=== PATIENT | female | born 1995 | race Caucasian/White ===

== ENCOUNTER 2021-03-15 17:36 | Emergency (ER) | payer OTHER, SELFPAY ==
[2021-03-15 17:55] VITALS: BP 133/75; PULSE 70; RESP 16; TEMP 36.7; O2SAT 100
--- NOTE | 2021-03-15 19:14 | ED.URI ---
HPI - URI/Sore Throat General Chief Complaint: Upper Respiratory Infection Stated Complaint: Congestion, Ear pain, Possible sinus infection Time Seen by Provider: 03/15/21 19:15 Source: patient Mode of arrival: ambulatory Limitations: no limitations History of Present Illness HPI Narrative: 25 year old female who presents to express care with complaints of sinus pressure, congestion and sinus drainage since . Patient states that she has taken antihistamines but continues to have facial pressure and forehead headache. Patient states that her pain is 5/10 describes pain as aching and pressure.Patient denies any known fevers chills or sweats, no complaints of sore throat or any ear pain. MD elicited complaint: rhinorrhea, nasal congestion, sinus pain and other (headache) Onset (ago): day(s) (4) Consistency: progressively worsening Severity: moderate Pain scale (0-10): 5 Description of mucous: clear Treatments prior to arrival: other (antihistamine) Related Data Allergies Allergy/AdvReac Type Severity Reaction Status Date / Time Sulfa (Sulfonamide Allergy Swelling Verified 03/15/21 18:12 Antibiotics) of the Eye Review of Systems Review of Systems: Narrative: CONSTITUTIONAL: Denies fever, chills, or sweats. EYES: Denies visual changes, redness, or discharge. ENT: Positive rhinorrhea,, congestion,no sore throat, feel fullness in ears CARDIOVASCULAR: Denies chest pain, palpitations, or edema. RESPIRATORY: Denies cough or dyspnea. GASTROINTESTINAL: Denies abdominal pain, nausea, vomiting, or diarrhea. GENITOURINARY: Denies dysuria or hematuria. SKIN: Denies rash or itching. MUSCULOSKELETAL: Denies back pain, joint pain, or myalgia. NEUROLOGIC: Positive frontal headache, no numbness, or weakness. PSYCHIATRIC: Denies anxiety or depression. All systems reviewed & are unremarkable except as noted in HPI and below PMFSH Past Medical History Medical History (Updated 03/20/21 @ 18:34 by Kailyn Jain NP) No significant medical problems Surgical History Surgical History (Updated 03/20/21 @ 18:35 by Kailyn Jain NP) [place] teeth extracted Family History Family History (Updated 03/20/21 @ 18:37 by Kailyn Jain NP) Mother Diabetes mellitus Grandparent Bladder cancer Diabetes mellitus Father Cerebrovascular accident Social History Social History (Updated 03/20/21 @ 18:33 by Kailyn Jain NP) Smoking status: Current some day smoker Alcohol intake: current Alcohol use details: social Substance use: never Living arrangements: with family Gender identity (if verbalized by the patient): Female Comments At time of signature, agree with nursing past medical, surgical, social and family history. There is no relevant family history pertinent to the presenting complaint Exam Narrative: Exam Narrative: GENERAL: Well-appearing, well-nourished, and in no acute distress. HEAD: Normocephalic, atraumatic. EYES: PERRLA and EOMI. ENT: Nares red with turbinates swollen and red, sinus pressure to face and frontal headache, with clear rhinorrhea no epistaxis. Mucous membranes moist.TM's normal with dull light reflex, throat pink with no lesions or exudates, no tonsil enlargement post nasal drainage noted. NECK: Supple.no lymphadenopathy CHEST: Clear to auscultation. No respiratory distress.SAO2 100% on room air HEART: Regular rate and rhythm. No murmur heard. Normal peripheral pulses. ABDOMEN: Soft, nontender, nondistended, normal active bowel sounds. EXTREMITIES: Normal range of motion. No edema. SKIN: Warm, dry, no rash. NEURO: No focal deficits. Alert and oriented x3. Course Vital Signs Vital signs: Vital Signs Temperature 36.7 C 03/15/21 17:55 Pulse Rate 70 03/15/21 17:55 Respiratory Rate 16 03/15/21 17:55 Blood Pressure 133/75 03/15/21 17:55 Pulse Oximetry 100 03/15/21 17:55 Temperature 36.7 C 03/15/21 17:55 Pulse Rate 70 03/15/21 17:55 Respiratory R
== END 2021-03-15 19:31 | disposition home or self-care (01) ==
PROVIDERS: Emergency Provider Registered Nurse; PCP Family Medicine
DX: J32.9 Chronic sinusitis, unspecified (principal); F17.200 Nicotine dependence, unspecified, uncomplicated
CPT/HCPCS: 99213; G0463

== ENCOUNTER 2021-09-29 13:57 | Outpatient (CLI) | payer OTHER, SELFPAY ==
[2021-09-29 14:16] LABS: Hematocrit 42.8 % (35.0-49.0); Hemoglobin 14.2 g/dL (12.0-15.0); Mean Corpuscular HGB Conc 33.2 g/dL (32.0-36.0); Mean Corpuscular Hemoglobin 30.5 pg (27.0-31.0); Mean Platelet Volume 10.6 fl (9.2-11.8); Platelet Count Result 317 K/mm3 (150-420); Red Blood Count 4.65 M/mm3 (4.20-5.40); Red Cell Distribution Width 12.2 % (11.6-14.4); White Blood Count 6.8 K/mm3 (4.8-10.8)
[2021-09-29 14:24] LABS: Hemoglobin A1C 5.2 % (<5.7)
[2021-09-29 14:55] LABS: Alanine Aminotransferase 19 U/L (14-59); Albumin Level 4.5 g/dL (3.4-5.0); Alkaline Phosphatase 55 U/L (46-116); Anion Gap 10 mmol/L (8-16); Aspartate Amino Transferase 13 U/L (15-37); Bilirubin,Total 0.4 mg/dL (0.00-1.00); Blood Urea Nitrogen 14 mg/dL (7-18); Calcium 9.4 mg/dL (8.5-10.1); Carbon Dioxide 27 mmol/L (21-32); Chloride 102 mmol/L (98-108); Estimated Glomerular Filt Rate > 60; Glucose 91 mg/dL (70-99); Osmolality Calculated 288 mOsm/kg (285-295); Potassium 4.1 mmol/L (3.5-5.1); Sodium 139 mmol/L (136-145); Thyroid Stimulating Hormone 1.76 uIU/mL (0.36-3.74); Total Protein 7.8 g/dL (6.4-8.2)
[2021-10-03 08:27] LABS: FSH 8.8 mIU/mL (***); LH 7.8 mIU/mL (***); Progesterone 2.5 ng/mL (***); Prolactin 7.6 ng/mL (***)
== END 2021-09-29 13:58 | disposition home or self-care (01) ==
LOC: CHSLAB 13:57
PROVIDERS: PCP Family Medicine; Visit Provider Obstetrics & Gynecology
DX: N97.9 Female infertility, unspecified (principal)
CPT/HCPCS: 36415; 80053; 83001; 83002; 83036; 84144; 84146; 84443; 85027

== ENCOUNTER 2022-03-16 09:46 | Outpatient (CLI) | payer OTHER, SELFPAY ==
[2022-03-20 14:16] LABS: Progesterone 8.1 ng/mL (***)
== END 2022-03-16 09:47 | disposition home or self-care (01) ==
LOC: CHSLAB 09:48
PROVIDERS: PCP Family Medicine; Visit Provider Obstetrics & Gynecology
DX: N97.0 Female infertility associated with anovulation (principal)
CPT/HCPCS: 36415; 84144

== ENCOUNTER 2022-04-13 13:49 | Outpatient (CLI) | payer OTHER, SELFPAY ==
[2022-04-17 05:14] LABS: Progesterone 6.1 ng/mL (***)
== END 2022-04-13 13:50 | disposition home or self-care (01) ==
LOC: CHSLAB 13:51
PROVIDERS: PCP Obstetrics & Gynecology; Visit Provider Obstetrics & Gynecology
DX: N97.0 Female infertility associated with anovulation (principal)
CPT/HCPCS: 36415; 84144

== ENCOUNTER 2022-04-25 06:37 | Outpatient (CLI) | payer OTHER, SELFPAY ==
--- NOTE | ~2022-04-25 | XR_ITS ---
EXAMINATION: XR hysterosalpingogram DATE: 04/25/2022 09:50 INDICATION: Female infertility associated with anovulation. TECHNIQUE: Fluoroscopy was performed by the radiologist during contrast infusion into the endometrial cavity of the uterus by the primary physician. Fluoroscopy exposure time was 0.2 minutes. The total number of images was 6. FINDINGS: The intrauterine cavity is normal in morphology. The fallopian tubes are normal in caliber. There is normal free intraperitoneal spillage of contrast on either side. IMPRESSION: 1. Normal hysterosalpingogram. Reviewed, dictated and finalized at location A.
[2022-04-25 08:54] LABS: Beta HCG Quantitative < 2.39 mIU/ML
--- NOTE | 2022-05-29 19:55 | P.OP_ITS ---
Procedure Note - Detailed Date of Procedure 05/29/22 Pre-op Diagnosis Female infertility Post-op Diagnosis Same Procedure Performed Hysterosalpingogram Surgeon Niko Najera MD Anesthesia None Indications Infertility Findings normal appearing uterine cavity, normal fill and spill of fallopian tubes bilaterally Description of Procedure After informed consent was obtained patient was placed in low lithotomy p osition. Speculum was inserted. Cervix cleaned with betadine. The cannula for the insufflation device was inserted into the cervical canal and the tubing was advanced and balloon inflated. The dye was injected but balloon came out. The tenaculum was placed on the anterior cervix and the cannula inserted into canal and tubing advanced balloon inflated. Dye injected total approximately 30cc total. Once the bilateral flow was noted the balloon deflated, tubing removed. Tenaculum removed. Hemostasis noted at tenaculum site. Patient tolerated procedure well. Post instruction precautions discussed. Estimated Blood Loss 5 Drains No Packing No Pathology None sent Complications No immediate complications Condition Stable Disposition Other (home) [facility] Billing Surgery - Charge Forward: Surgery Billing
== END 2022-04-25 06:38 | disposition home or self-care (01) ==
PROVIDERS: Visit Provider Obstetrics & Gynecology
DX: N97.0 Female infertility associated with anovulation (principal)
CPT/HCPCS: 36415; 58340; 74740; 84702; Q9966

== ENCOUNTER 2022-05-12 08:53 | Outpatient (CLI) | payer OTHER, SELFPAY ==
[2022-05-12 09:07] LABS: Basophils Absolute Auto 0.05 K/mm3 (0.00-0.10); Basophils Percent Auto 0.8 % (0.0-1.0); Eosinophils Percent Auto 1.5 % (1.0-6.0); Hematocrit 38.7 % (35.0-49.0); Hemoglobin 12.8 g/dL (12.0-15.0); Immature Granulocyte Absolute 0.02 K/mm3 (0.00-0.00); Immature Granulocyte Percent A 0.3 % (0.0-0.0); Lymphocytes Absolute Auto 1.16 K/mm3 (1.10-4.50); Lymphocytes Percent Auto 17.8 % (18.0-42.0); Mean Corpuscular HGB Conc 33.1 g/dL (32.0-36.0); Mean Corpuscular Hemoglobin 30.2 pg (27.0-31.0); Mean Corpuscular Volume 91.3 fL (78.0-102.0); Mean Platelet Volume 10.5 fl (9.2-11.8); Monocytes Absolute Auto 0.45 K/mm3 (0.10-0.90); Monocytes Percent Auto 6.9 % (2.0-11.0); Neutrophils Absolute Auto 4.7 K/mm3 (1.7-7.2); Neutrophils Percent Auto 72.7 % (50.0-70.0); Platelet Count Result 261 K/mm3 (150-420); Red Blood Count 4.24 M/mm3 (4.20-5.40); Red Cell Distribution Width 12.4 % (11.6-14.4); White Blood Count 6.5 K/mm3 (4.8-10.8)
[2022-05-12 09:10] LABS: Appearance Urine Clear (Clear); Bilirubin Urine Negative (Negative); Color Urine Light Yellow (Yellow); Glucose Urine UA Negative (Negative); Ketones Urine Negative (Negative); Leukocyte Esterase Ur Negative (Negative); Nitrate Urine Negative (Negative); Protein Urine Negative (Negative); Specific Grav Ur 1.015 (1.010-1.020); Urobilinogen Urine 0.2 mg/dL (0.2-1.0); pH Urine 6.5 (5.0-8.0)
[2022-05-12 09:15] LABS: Add Urine Microscopic? YES; Bacteria Urine 2+ /hpf; Blood Urine Trace-Intact (Negative); RBC Urine 0-2 /hpf (0-2); Squamous Epithelial Cell Urine Moderate /hpf (Few); WBC Urine 0-3 /hpf (0-3)
[2022-05-12 09:32] LABS: Alanine Aminotransferase 17 U/L (14-59); Alkaline Phosphatase 55 U/L (46-116); Anion Gap 3 mmol/L (8-16); Aspartate Amino Transferase 16 U/L (15-37); Bilirubin,Total 0.5 mg/dL (0.00-1.00); Blood Urea Nitrogen 17 mg/dL (7-18); Calcium 8.8 mg/dL (8.5-10.1); Carbon Dioxide 28 mmol/L (21-32); Chloride 105 mmol/L (98-108); Cholesterol 151 mg/dL (0-200); Estimated Glomerular Filt Rate > 60; Glucose 98 mg/dL (70-99); HDL Direct 54 mg/dL (40-60); LDL Cholesterol Calculated 88 mg/dL (<130); Osmolality Calculated 283 mOsm/kg (285-295); Potassium 3.9 mmol/L (3.5-5.1); Sodium 136 mmol/L (136-145); Thyroid Stimulating Hormone 1.97 uIU/mL (0.36-3.74); Total Protein 7.4 g/dL (6.4-8.2); Triglycerides 46 mg/dL (0-150)
[2022-05-15 05:46] LABS: Progesterone 2.5 ng/mL (***)
== END 2022-05-12 08:54 | disposition home or self-care (01) ==
PROVIDERS: Obstetrics & Gynecology; PCP Family Medicine; Visit Provider Nurse Practitioner Family
DX: Z00.00 Encounter for general adult medical examination without abnormal findings (principal); E78.2 Mixed hyperlipidemia; N83.9 Noninflammatory disorder of ovary, fallopian tube and broad ligament, unspecified; E03.9 Hypothyroidism, unspecified
CPT/HCPCS: 36415; 80053; 80061; 81001; 84144; 84443; 85025

== ENCOUNTER 2022-07-06 14:28 | Outpatient (CLI) | payer OTHER, SELFPAY ==
[2022-07-10 16:26] LABS: Progesterone 10.1 ng/mL (***)
== END 2022-07-06 14:29 | disposition home or self-care (01) ==
PROVIDERS: PCP Family Medicine; Visit Provider Obstetrics & Gynecology
DX: N97.0 Female infertility associated with anovulation (principal)
CPT/HCPCS: 36415; 84144

== ENCOUNTER 2022-08-02 16:53 | Outpatient (CLI) | payer OTHER, SELFPAY ==
[2022-08-07 18:11] LABS: Progesterone 18.8 ng/mL (***)
== END 2022-08-02 16:54 | disposition home or self-care (01) ==
LOC: CHSLAB 16:55
PROVIDERS: PCP Family Medicine; Visit Provider Obstetrics & Gynecology
DX: N97.0 Female infertility associated with anovulation (principal)
CPT/HCPCS: 36415; 84144

== ENCOUNTER → 2023-05-15 15:16 | Outpatient (CLI) | payer OTHER, SELFPAY ==
--- NOTE | ~2023-05-15 | US_ITS ---
EXAMINATION: US pelvic complete w TV DATE: 05/15/2023 16:01 INDICATION: Dysmenorrhea, unspecified. TECHNIQUE: Multiple transabdominal and transvaginal sonographic images of the pelvis were obtained. COMPARISON: Hysterosalpingogram 04/25/2022 FINDINGS: TRANSABDOMINAL ULTRASOUND: The uterus measures 7.7 x 3.8 x 5.0 cm. There is physiologic free fluid in the pelvis. TRANSVAGINAL ULTRASOUND: The endometrial complex measures 7 mm in thickness. The right ovary measures 2.6 x 1.9 x 2.2 cm. The left ovary measures 4.1 x 2.0 x 1.8 cm. IMPRESSION: 1. Normal pelvis. Reviewed, dictated and finalized at location E. IMPRESSION: 1. Normal pelvis.
== END ==
PROVIDERS: PCP Obstetrics & Gynecology; Visit Provider Registered Nurse
DX: N94.6 Dysmenorrhea, unspecified (principal)
CPT/HCPCS: 76830; 76856

== ENCOUNTER 2024-04-11 08:12 | Outpatient (CLI) | payer OTHER, SELFPAY ==
--- NOTE | ~2024-04-11 | MMUS_ITS ---
EXAMINATION: MM diagnostic serenity BI w anushka, US breast BI complete HISTORY: Palpable breast lumps TECHNIQUE: Additional 3-D tomosynthesis images of the breasts were performed and synthetic 2-D images were generated. CAD analysis was submitted and interpreted. High resolution bilateral complete breas t ultrasound was performed. COMPARISON: Ultrasound dated 11/06/2015 BREAST PARENCHYMAL COMPOSITION: Dense: The breasts are extremely dense, which lowers the sensitivity of mammography. FINDINGS: MAMMOGRAPHIC FINDINGS: There are no suspicious masses, calcifications or architectural distortion in either breast to sugges t malignancy. ULTRASOUND: Complete bilateral US of all 4 quadrants of the breasts and retroareolar region was reviewed. Right breast: Normal heterogeneous echotexture without focal solid or cystic mass. Left breast: At 12 :00, 4 cm from the nipple, there is an 8 mm cyst. At 11:00, 6 cm from the nipple, there is a 7 mm ova l hypoechoic mass with posterior acoustic enhancement, low level internal echoes, likely benign. IMPRESSION: 1. Probable benign left breast mass at 11:00, 6 cm from the nipple measuring 7 mm. No evidence for ma lignancy in the right breast. 2. Recommend 6 month follow-up Limited left breast ultrasound BI-RADS category 3, probably benign findings. Reviewed, dictated and finalized at location B. IMPRESSION: 1. Probable benign left breast mass at 11:00, 6 cm from the nipple measuring 7 mm. No evidence for malignancy in the right breast. 2. Recommend 6 month follow-up Limited left breast ultrasound BI-RADS category 3, probably benign findings.
== END 2024-04-11 08:13 ==
LOC: MICIMG 08:13
PROVIDERS: PCP Family Medicine; Visit Provider Nurse Practitioner
DX: N63.0 Unspecified lump in unspecified breast (principal)
CPT/HCPCS: 76641; 77062; 77066; G0279

== ENCOUNTER 2024-07-15 08:00 | Outpatient (CLI) | payer OTHER, SELFPAY ==
--- NOTE | ~2024-07-15 | MR_ITS ---
EXAMINATION: MR breast BI wo/w con INDICATION: Left breast lump TECHNIQUE: Axial VIBRANT pre and dynamic post contrast, Sagittal VIBRANT post contrast, Axial T2 STIR ASSET COMPARISON: 04/11/2024 CONTRAST: Multihance, 20 cc BREAST COMPOSITION: Extreme fibroglandular tissue FINDINGS: RIGHT BREAST: There is mild background parenchymal enhancement. No abnormal enhancement is present af ter contrast administration. No pathologically enlarged axillary or internal mammary lymph nodes are identified. LEFT BREAST: There is mild background parenchymal enhancement. No abnormal enhancement is present aft er contrast administration. No pathologically enlarged axillary or internal mammary lymph nodes are i dentified. IMPRESSION: No evidence of malignancy in either breast. BI-RADS Category 1: Negative Reviewed, dictated and finalized at location .
== END 2024-07-15 08:01 | disposition home or self-care (01) ==
LOC: ANHIMG 08:05
PROVIDERS: PCP Family Medicine; Visit Provider Surgery
DX: N63.22 Unspecified lump in the left breast, upper inner quadrant (principal); R92.343 Mammographic extreme density, bilateral breasts; Z12.39 Encounter for other screening for malignant neoplasm of breast; Z80.3 Family history of malignant neoplasm of breast; Z91.89 Other specified personal risk factors, not elsewhere classified
CPT/HCPCS: 77049; A9577; C8908

== ENCOUNTER 2024-11-27 08:04 | Outpatient (CLI) | payer OTHER, SELFPAY ==
--- NOTE | ~2024-11-27 | US_ITS ---
EXAMINATION TYPE: US breast BI limited COMPARISON: 04/11/2024 REASON FOR STUDY: R92.343 - Mammographic extreme density, bilateral breasts TECHNIQUE: Targeted sonographic evaluation of the bilateral breasts was performed. INTERPRETATION: Scanning performed at the sternoclavicular position right breast at 6 cm the nipple, at the area of p alpable concern. There is fibroglandular tissue present in this region. No solid or cystic lesion clem ntified. Scanning of the left breast 12:00 position, 4 cm from the nipple, demonstrates stable 9 x 8 x 4 mm pa rallel, simple cyst. There is an additional 9 x 9 x 6 mm simple cyst at the 11:00 position left breas t, 6 m from the nipple. There is an additional adjacent cyst also measuring 9 x 8 x 6 mm. IMPRESSION: Benign cysts in the left breast, as detailed above. No sonographic abnormality seen in the area of clinical concern the right breast. BI-RADS CATEGORY: BI-RADS 2: Benign Reviewed, dictated and finalized at location M. IMPRESSION: Benign cysts in the left breast, as detailed above. No sonographic abnormality seen in the area of clinical concern the right breas t. BI-RADS CATEGORY: BI-RADS 2: Benign
== END 2024-11-27 08:05 | disposition home or self-care (01) ==
PROVIDERS: PCP Family Medicine; Visit Provider Surgery
DX: R92.343 Mammographic extreme density, bilateral breasts (principal); Z80.3 Family history of malignant neoplasm of breast; N63.22 Unspecified lump in the left breast, upper inner quadrant; N63.15 Unspecified lump in the right breast, overlapping quadrants
CPT/HCPCS: 76642

== ENCOUNTER 2025-01-13 09:37 | Outpatient (CLI) | payer OTHER, SELFPAY ==
--- NOTE | ~2025-01-13 | MM_ITS ---
EXAMINATION: MM diagnostic serenity BI w anushka HISTORY: High risk screening TECHNIQUE: Craniocaudal and mediolateral oblique 3-D tomosynthesis images were obtained and synthetic 2-D images were generated. CAD analysis was submitted and interpreted. COMPARISON: 04/11/2024. Reference is also made to contrast-enhanced MRI dated 07/15/2024 BREAST PARENCHYMAL COMPOSITION: The breasts are extremely dense, which lowers the sensitivity of mamm ography. FINDINGS: Punctate calcifications are detected bilaterally, stable and benign in appearance. Stable parenchymal pattern without suspicious microcalcifications, architectural distortion, discrete masses or significant asymmetry. IMPRESSION: No mammographic/tomographic evidence of malignancy. Recommend high risk screening contrast-enhanced MRI in 6 months, in order to continue high-risk surve illance Reviewed, dictated and finalized at location [] IMPRESSION: No mammographic/tomographic evidence of malignancy. Recommend high risk screening contrast-enhanced MRI in 6 months, in order to co ntinue high-risk surveillance
--- OUTSIDE RECORDS SUMMARY | 2025-01-13 10:34 | XMS_ITS | Clinical Summary ---
Author Organization [facility] Address [address] [place] [address] Care Team Providers Care Engraver Set Up Operator Name Role Phone Mark Hoskins MD Primary Care Provider [phone] Source Comments [facility],non-owned Affiliates and Associated Physician Practices is amultiple site organization consisting of ambulatory clinics and hospital sitesin [place], [place], [place] and [place]. This disclosure is being madepursuant to the Care Everywhere program and may not contain all information available regarding this patient. Last updated 18.[facility] Allergies Active Allergy Reactions Criticality Noted Date Comments Sulfacetamide Rash Medium 11/22/2023 Medications * Be aware that medications may not be up to date on this document. Alwaysverify current medications with the patient. meloxicam (Mobic) 7.5 MG tablet Take 1 (one) tablet by mouth once daily 30 tablet 11 4 Active tiZANidine (Zanaflex) 2 MG tablet Take 1 (one) tablet by mouth every 8 hours as needed for Muscle Spasms 20 tablet 3 4 Active propranolol (Inderal) 10 MG tablet TAKE 1-2 TABLETS BY MOUTH EVERY 12 HOURS. 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 TECHNICIAN [address] [place] [address] Nicole Ba MD Endometriosis (Primary Dx); Spastic pelvic floor syndrome 11/11/2024 Travel from Last 3 Months Social History Tobacco Use Types Packs/Day Years Used Date Smoking Tobacco: Never Smokeless Tobacco: Never Tobacco Cessation:Counseling Given: Not Answered Alcohol Use Standard Drinks/Week Comments Not Currently 0 (1 standard drink = 0.6 oz pur e alcohol) PHQ-2 Answer Date Recorded Patient Health Questionnaire-2 Score 0 02/18/2024 Comments No Sex and Gender Information Value Date Recorded Sex Assigned at Not on file Legal Sex Female 3:29 PM CDT Gender Identity Not on file Sexual Orientation Not on file Last Filed Vital Signs Vital Sign Reading Time Taken Comments Blood Pressure 126/84 11/11/2024 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 Pulse 80 04/23/2024 6:00 PM CDT Temperature 37.6 C (99.6 F) 04/23/2024 5:25 PM CDT Respiratory Rate 16 04/23/2024 6:00 PM CDT Oxygen Saturation 100% 04/23/2024 6:00 PM CDT Inhaled Oxygen Concentration - - Weight 105.2 kg (232 lb) 11/11/2024 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 Height 170.2 cm (5' 7 ) 11/11/2024 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 Body Mass Index 36.34 11/11/2024 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 Plan of Treatment Health Maintenance Due Date Last Done Comments PAP SMEAR 1994 HIV SCREENING 2009 HEPATITIS C SCREENING 04/16/2012 DTAP/TDAP/TD VACCINES (1 - Tdap) 2013 HEPATITIS B VACCINE (1 of 3 - 19+ 3-dose series) 2013 COVID-19 VACCINE ( - 2023-2 5 season) 2024 10/20/2021, 09/15/2021 DEPRESSION SCREENING 09/18/2024 02/19/2024 INFLUENZA VACCINE (Season Ended) 2025 10/20/2021 ZOSTER VACCINE (1 of 2) 2044 HIB VACCINE Aged Out No longer eligi ble based on patient's age to complete this topic HPV VACCINE Aged Out No longer eligi ble based on patient's age to complete this topic MENINGOCOCCAL (Group B) VACCINE SHARED DECISION-MAKING Aged Out No longer eligible based on patient's age to complete this topic MENINGOCOCCAL GROUPS A/C/Y/W VACCINE Aged Out No longer eligible b ased on patient's age to complete this topic PNEUMOCOCCAL VACCINE Aged Out No long er eligible based on patient's age to complete this topic Insurance [employer] Care Teams Engraver Set Up Operator Relationship Specialty Start Date End Date Mark Hoskins MD [address] [place] [address] PCP - General Family Medicine 11/22/23
--- OUTSIDE RECORDS SUMMARY | 2025-01-13 10:34 | XMS_ITS | Encounter Summary ---
Author Organization [facility] Address [address] [place] [address] Care Team Providers Care Frame Sample And Pattern Supervisor Name Role Phone Mark Hoskins MD Primary Care Provider [phone] Reason for Visit * Reason Onset Date Comments Forms/questionnaires 05/08/2024 Encounter Details Date Type Department Care Team (Late st Contact Info) Description 05/08/2024 Telephone [facility] - EHS ENGINEER [address] [place] [address] Nicole Ba MD [address] [place] [address] Forms/questionnaires Social History Tobacco Use Types Packs/Day Years Used Date Smoking Tobacco: Never Smokeless Tobacco: Never Alcohol Use Standard Drinks/Week Comments Not Currently 0 (1 standard drink = 0.6 oz pur e alcohol) PHQ-2 Answer Date Recorded Patient Health Questionnaire-2 Score 0 02/18/2024 Comments No Sex and Gender Information Value Date Recorded Sex Assigned at Not on file Legal Sex Female 3:29 PM CDT Gender Identity Not on file Sexual Orientation Not on file documented as of this encounter Miscellaneous Notes * Telephone Encounter - Marisabel Garcia RN - 05/08/2024 12:02 PM CDT RN called pt. Pt had surgery 04/23/24. Pt said [employer] having issue with her claim for leave and theyare needing something showing surgery and dx code faxed to them. RN confirmed claim # given and faxed op note from surgery to [facility] as requested. * Telephone Encounter - Divya Briseno - 05/08/2024 10:10 AM CDT PT is calling regarding disability paperwork. Has a new workers compensation claims specialist and they do not have her paperwork. Needing a document with her surgery information. to [facility] Claims # [id number] C/B [phone] documented in this encounter Plan of Treatment Not on file documented as of this encounter Visit Diagnoses Not on filedocumented in this encounter Care Teams Frame Sample And Pattern Supervisor Relationship Specialty Start Date End Date Mark Hoskins MD [address] [place] [address] PCP - General Family Medicine 11/22/23 documented as of this encounter
--- OUTSIDE RECORDS SUMMARY | 2025-01-13 10:34 | XMS_ITS | Data Portability ---
Author Organization [facility] Address [address] [place] [address] Care Team Providers Care Director Of Quality Improvement Name Role Phone KOBI MCBRIDE Primary Care Provider Assessment Encounter Date Assessment Date Assessment LastModified by Organization Details LastModified Time 12/22/2020 12/22/2020 Annual gynecological exam performed. Patient will come back in a year unless there are new symptoms. [email or web address] Not available 12/22/2020 11:42:29 03/19/2024 03/19/2024 Annual gynecological exam performed. Patient will come back in a year unless there are new symptoms. Not available 03/19/2024 16:29:33 Plan of Treatment Reminders Order Date Submit Date Provider Last Modified By Organization Details Last Modified Time Details Appointments None recorded. Lab 17-hydroxyp rogesterone , QN, serum 2024 025 [facility] (Lab), [address], [place], [address], 5 19:29:21 dhea-sulfat e, serum 2024 025 [facility] (Lab), [address] [place], [address], 5 19:29:20 estradiol, serum 2024 025 [facility] (Lab), [address] [place], [address], 5 19:29:18 FSH (follicle-s timulating hormone), serum 2024 025 [facility] (Lab), [address], [place], [address], 5 19:29:20 HbA1c (hemoglobin A1c), blood 2024 025 [facility] (Lab), [address], [place], [address], 5 19:29:17 lh (luteinizin g hormone), serum 2024 025 [facility] (Lab), [address], [place], [address], 5 19:29:19 progesteron e, serum 2024 025 [facility] (Lab), [address], [place], [address], 5 19:29:18 prolactin, serum 2024 025 [facility] (Lab), [address] [place], [address], 5 19:29:18 shbg (sex hormone-bin ding globulin), serum 2024 025 [facility] (Lab), [address], [place], [address], 5 19:29:19 TSH, serum or plasma 2024 025 [facility] (Lab), [address] [place], [address], 5 19:29:17 testosteron e free/testos terone total, ratio, serum 2024 025 [facility] (Lab), [address] [place], [address], 5 19:29:21 anti-dai howard hormone (amh), serum 2024 025 [facility] (Lab), [address], [place], [address], 5 19:29:20 Referral None recorded. Procedures None recorded. Surgeries None recorded. Imaging MAMMO, diagnostic, digital, bilateral - bilateral breast lumps around 12 o'clock and throughout upper breast 2023 024 [facility], [address], [place], [address], 5 05:01:23 US, breast, bilateral, complete 2023 [facility], [address], [place], [address], 5 05:01:23 Medication Orders None recorded. Patient TargetsNo targets recorded. Patient InstructionsNo instructions recorded. Reason for Referral None Reported. 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 Order ing Locat ion: [place] Patho log[facility] Recei qian: 12/23 0945 First Scree n: Andrew Rivera, CT Speci men: Scree ekaterina Pap - Image d, Cervi x STATE MENT OF ADEQU ACY: Satis facto ry for evalu ation Trans forma tion zone compo nent absen t FINAL DIAGN OSIS: Negat marshall for Squam ous Intra epith elial Lesio n Elect ronwaldemar ally gena d by Andrew Rivera, CT on 021 at 7:57 PM ----- ----- ----- ----- ----- ----- ----- ----- ----- ----- ----- ----- ----- ----- ----- ----- ----- ---- HPV RESUL TS: HPV mRNA E6/E7 : No HPV mRNA Detec maxine NOTE: This high risk HPV mRNA assay detec ts fourt een high- risk HPV types (16, 18, 31, 33, 35, 39, 45, 51, 52, 56, 58, 59, 66, 68) witho ut diffe renti ation . CHART ABLE COMME NT: Note: This speci men was revie wed by a Cytot echno logis t and/o r Patho logis t (as indic ated in this repor t) after evalu ation using the Thinp rep Imagi ng Syste m. CLINI JOSELITO INFOR MATIO N: Menst rual Statu s: LMP (if appli cable ): Clini joselito Histo ry/Pr eviou s Pap: Type of Neopl nadir (if appli cable ): Other Histo ry: Hormo damon (if appli cable ): PAP EDUCA YENNIFER L NOTE: The Pap Test is a scree ekaterina test with an inher ent false negat marshall rate. Liqui d-bas e sampl ing may decre ase, but will not elimi richi, false negat marshall resul ts. A negat marshall resul t does not precl ude the prese nce and/o r devel opmen t of disea se, since the prese nce of abnor mal cells in the sampl e depen ds on the locat ion of the lesio n and sampl ing techn ique. Mary Kay nued regul ar scree ekaterina is the best metho d of cance r preve ntion . If repor maxine cytol ogic findi ng do not corre late with physi joselito and/o r histo rical findi ngs, fur er inves tigat ion is recom jose d, as clini fabi mccann nted. Not Available [facility] (Lab) [address], [place], [address], 12/24/2020 13:12:47 03/19/20 24 03/19/2024 IMAGE GUIDE D PAP, REFLE X HPV IF ASCUS ONLY image guided Pap, reflex HPV ASCUS only SEE RESULT S BELOW CASE REPOR T: Cytol ogy Gynec ologi joselito Repor t Case: [id number] Autho buck blaise Provi sherley: Mary Cordova, DARIELA Colle cted: 03/19 1648 Order ing Locat ion: [place] Patho logy Recei qian: 03/20 1706 First Scree n: Fredis Miller, CT Rescr een: Aury Kaur Specscottie men: [place] tobar Pap - Image d, Cervi x STATE MENT OF ADEQU ACY: Satis facto ry for evalu ation Trans forma tion zone compo nent absen t The absen ce of an endoc ervic al compo nent was confi rmed by an addit ional [place] ner. ----- ----- ----- ----- ----- ----- ----- ----- ----- ----- ----- ----- ----- ----- ----- ----- ----- ---- FINAL DIAGN OSIS: Negat marshall for Intra epith elifreddy giang or Anurag lovell ([facility]) . Elect milind julien by Aury Kaur on 024 at 4:35 PM ----- ----- ----- ----- ----- ----- ----- ----- ----- ----- ----- ----- ----- ----- ----- ----- ----- ---- COMME NT: This speci men was revie wed by a Cytot echno logis t and/o r Patho logis t (as indic ated in this repor t) after evalu ation using the Thinp rep Imagi ng Syste m. CLINI JOSELITO INFOR MATIO N: Menst rual Statu s: LMP (if appli cable ): Clini joselito Histo ry/Pr eviou s Pap: Type of Neopl nadir (if appli cable ): Signi fican t Clini joselito Findi ngs: Other Histo ry: Hormo damon (if appli cable ): PAP EDUCA YENNIFER L NOTE: The Pap Test is a scree ekaterina test with an inher ent false negat marshall rate. Liqui d-bas ed sampl ing may decre ase, but will not elimi richi, false negat marshall resul ts. A negat marshall resul t does not precl ude the prese nce and/o r devel opmen t of disea se, since the prese nce of abnor mal cells in the sampl e depen ds on the locat ion of the lesio n and sampl ing techn ique. Mary Kay nued regul ar scree ekaterina is the best metho d of cance r preve ntion . If repor maxine cytol ogic findi ng do not corre late with physi joselito and/o r histo rical findi ngs, furth er inves tigat ion is recom jose d, as clini fabi mccann nted. Not Available [facility] (Lab) [address], [place], [address], 03/25/2024 17:39:16 07/16/20 24 07/16/2024 PROGE STERO NE progesterone 17.10 NG/mL This assay was perfo rmed using [employer] ratio n reage nts and test kits. Value s obtai bella with other assay metho ds or kits canno t be used inter valles eably . Femal e Proge stero ne Range s: Folli cular phase 0.06- 0.89 ng/mL Ovula tion phase 0.12- 12.00 ng/mL Lutea l phase 1.83- 23.90 ng/mL Postm enopa usal <0.05 -0.13 ng/mL Healt hy Pregn ant Women 1st Trime ster 11.0- 44.30 2nd Trime ster 25.40 -83.3 0 3rd Trime ster 58.70 -214. 00 Not Available [facility] (Lab) [address] [place], [address], 07/17/2024 04:40:22 08/13/20 24 08/13/2024 PROGE STERO NE progesterone 19.90 NG/mL This assay was perfo rmed using [employer] ratio n reage nts and test kits. Value s obtai bella with other assay metho ds or kits canno t be used inter [facility] . Femal e Proge stero ne Range s: Folli cular phase 0.06- 0.89 ng/mL Ovula tion phase 0.12- 12.00 ng/mL Lutea l phase 1.83- 23.90 ng/mL Postm enopa usal <0.05 -0.13 ng/mL Healt hy Pregn ant Women 1st Trime ster 11.0- 44.30 2nd Trime ster 25.40 -83.3 0 3rd Trime ster 58.70 -214. 00 Not Available [facility] (Lab) [address] [place], [address], 08/14/2024 04:59:27 09/12/20 24 09/12/2024 PROGE STERO NE progesterone 27.10 NG/mL This assay was perfo rmed using [employer] ratio n reage nts and test kits. Value s obtai bella with other assay metho ds or kits canno t be used inter [facility] . Femal e Proge stero ne Range s: Folli cular phase 0.06- 0.89 ng/mL Ovula tion phase 0.12- 12.00 ng/mL Lutea l phase 1.83- 23.90 ng/mL Postm enopa usal <0.05 -0.13 ng/mL Healt hy Pregn ant Women 1st Trime ster 11.0- 44.30 2nd Trime ster 25.40 -83.3 0 3rd Trime ster 58.70 -214. 00 Not Available [facility] (Lab) [address], [place], [address], 09/13/2024 03:47:28 10/18/1910/18/2024 HEMOG LOBIN A1C hemoglobin A1C 5.4 % 4.0-5. 6 The Ameri can Diabe aubrie Assoc iatio n recom mends that a prima ry goal of thera py snehal d be a HBA1C of < 7% and that physi cians shoul d reeva luate the treat ment regim en in patie nts with HBA1C value s consi stent ly > 8%. <5.7% Cindy l 5.7 - 6.4% Incre ased risk for diabe aubrie >=6.5 % Diagn ostic of diabe aubrie <7.0% Goal of thera py >8.0% Actio n sugge sted Not Available [facility] (Lab) [address], [place], [address], 10/26/2024 19:29:17 10/18/19 25 10/18/2024 TSH, REFLE X FREE T4 TSH 2.65 uIU/m L 0.30-5 .33 Not Available [facility] (Lab) [address], [place], [address], 10/26/2024 19:29:17 10/18/19 25 10/18/2024 ESTRA DIOL estradiol 33.8 pg/mL This assay was perfo rmed using [employer] ratio n reage nts and test kits. Value s obtai bella with other assay metho ds or kits canno t be used inter valles eably . Femal e Estra diol Range s: Folli cular phase 12.4- 233 pg/mL Ovula tion phase 41.0- 398 pg/mL Lutea l phase 22.3- 341 pg/mL Postm enopa usal <5-13 8 pg/mL Healt hy Pregn ant Women 1st Trime ster 154-3 243 pg/mL 2nd Trime ster 1561- 11768 pg/mL 3rd Trime ster 8525- >3000 0 pg/mL Not Available [facility] (Lab) [address] [place], [address], 10/26/2024 19:29:18 10/18/19 25 10/18/2024 PROGE STERO NE progesterone 2.00 NG/mL This assay was perfo rmed using [employer] ratio n reage nts and test kits. Value s obtai bella with other assay metho ds or kits canno t be used inter valles eay . Femal e Proge stero ne Range s: Folli cular phase 0.06- 0.89 ng/mL Ovula tion phase 0.12- 12.00 ng/mL Lutea l phase 1.83- 23.90 ng/mL Postm enopa usal <0.05 -0.13 ng/mL Healt hy Pregn ant Women 1st Trime ster 11.0- 44.30 2nd Trime ster 25.40 -83.3 0 3rd Trime ster 58.70 -214. 00 Not Available [facility] (Lab) [address], [place], [address], 10/26/2024 19:29:18 10/18/19 25 10/18/2024 PROLA CTIN prolactin, total 18.40 NG/mL 4.79-2 3.30 This assay was perfo rmed using [employer] ratio n reage nts and test kits. Value s obtai bella with other assay metho ds or kits canno t be used inter [facility] . Not Available [facility] (Lab) [address], [place], [address], 10/26/2024 19:29:18 10/18/19 25 10/18/2024 HUMAN SEX HORMO NE MONIKA NG GLOBU RUBI sex hormone binding globulin 50.4 nmole s/L 18.2-1 35.5 Not Available [facility] (Lab) [address], [place], [address], 10/26/2024 19:29:19 10/18/19 25 10/18/2024 LH (LUTE NIZIN G HORMO NE) LH 7.2 mIU/m L This assay was perfo rmed using [employer] ratio n reage nts and test kits. Value s obtai bella with other assay metho ds or kits canno t be used inter [facility] . Femal es Mid-F ollic ular: 2.4-1 2.6 mIU/m L Mid-C ycle: 14.0- 95.6 mIU/m L Mid-L uteal : 1.0-1 1.4 mIU/m L Postm enopa use: 7.7-5 8.5 mIU/m L Not Available [facility] (Lab) [address], [place], [address], 10/26/2024 19:29:19 10/18/19 25 10/18/2024 FSH FSH 5.2 mIU/m L This assay was perfo rmed using [employer] ratio n reage nts and test kits. Value s obtai bella with other assay metho ds or kits canno t be used inter [facility] . Femal es Folli cular : 3.5-1 2.5 mIU/m L Ovula tion: 4.7-2 1.5 mIU/m L Lutea l: 1.7-7 .7 mIU/m L Postm enopa use: 25.8- 134.8 mIU/m L Not Available [facility] (Lab) [address] [place], [address], 10/26/2024 19:29:20 10/18/1910/18/2024 ANTIM ULLER HOWARD HORMO NE (AMH) anti-mulleri an hormone (amh) 2.96 NG/mL Femal e Refer ence Range s 20-24 years : 1.22 - 11.70 ng/mL 25-29 years : 0.89 - 9.85 ng/mL 30-34 years : 0.58 - 8.13 ng/mL 35-39 years : 0.15 - 7.49 ng/mL 40-44 years : 0.03 - 5.47 ng/mL The follo wing resul ts were obtai bella with the [employer] assay . Resul ts from assay s of other manuf actur es canno t be used inter valles ably. Not Available [facility] (Lab) [address], [place], [address], 10/26/2024 19:29:20 10/18/19 25 10/18/2024 DHEA SULFA TE DHEA-sulfate 123 ug/dL Femal e Range s Age(y ) Range (ug/d L) 10-15 34-28 0 15-20 65-36 8 20-25 148-4 07 25-35 99-34 0 35-45 61-33 7 45-55 35-25 6 55-65 19-20 5 65-75 9-246 > 75 12-15 4 Not Available [facility] (Lab) [address], [place], [address], 10/26/2024 19:29:20 10/18/19 25 10/18/2024 TESTO STERO NE, FREE( DIALY SIS) AND TOTAL (LC/M S/MS) testosterone , total 14 NG/dL 2-45 For addit ional infor jhonatan valadez e refer to http: //shannon giang.que stdia gnost ics.c om/fa q/ Total Testo stero neLCM SMSFA Q165 (This link is being provi ded for infor fidelia vieyra/ educa yennifer l purpo ses only. ) This test was devel oped and its verona tical perfo rmanc e lana cteri stics have been deter mined by [facility] ost[facility] [address] Fabioi quang [place], [place]. It has not been clear ed or appro qian by the U.S. Food and Drug Admin istra tion. This assay has been valid ated pursu ant to the CLIA regul ation s and is used for clini joselito purpo ses. Not Available [facility] (Lab) [address], [place], [address], 10/26/2024 19:29:21 10/18/19 25 10/18/2024 TESTO STERO NE, FREE( DIALY SIS) AND TOTAL (LC/M S/MS) testosterone , free 2.0 pg/mL 0.1-6. 4 This test was devel oped and its verona tical perfo rmanc e lana cteri stics have been deter mined by [facility] [employer] ostwaldemar s Kar nuñez [place], [place]. It has not been clear ed or appro qian by the U.S. Food and Drug Admin istra tion. This assay has been valid ated pursu ant to the CLIA regul ation s and is used for clini joselito purpo ses. Perfo rming Organ izati on Infor [facility]: Site ID: [id number] Name: Circular calos [facility] Addre ss: [id number] [place], [place] Direc tor: Marysol Mills MD PhD Not Available [facility] (Lab) [address], [place], [address], 10/26/2024 19:29:21 10/18/19 25 10/18/2024 17-OH PROGE STERO NE 17-hydroxypr ogesterone, lc/MS/MS 32 NG/dL Adult Femal e Refer ence Range s for 17-Hy droxy proge stero ne: Pre-M enopa usal Mid Folli cular : 23-10 2 ng/dL Pre-M enopa usal Surge : 67-34 9 ng/dL Pre-M enopa usal Mid Lutea l: 139-4 31 ng/dL Postm enopa usal Phase : < or = 45 ng/dL Pregn lindsey: First Trime ster: 78-45 7 ng/dL Secon d Trime ster: 90-35 7 ng/dL Third Trime ster: 144-5 78 ng/dL This test was devel oped and its verona tical perfo rmanc e lana cteri stics have been deter mined by [employer]. It has not been clear ed or appro qian by FDA. This assay has been valid ated pursu ant to the CLIA regul ation s and is used for clini joselito purpo ses. Perfo rming Organ izati on Infor matio n: Site ID: [id number] Name: [facility]/Marlo madonna [facility] , Addre ss: [id number] [place] [address] Dire tor: Smitha robles MD,Ph D,ADRIENNE Not Available [facility] (Lab) [address], [place], [address], 10/26/2024 19:29:21 04/11/20 24 04/11/2024 imagi ng/di agnos tic resul t No observ ation record ed. [facility] [address], [place], [address], 04/15/2024 15:07:02 Result Notes None recorded. Problems Name Problem SNOMED Code Status Onset Date Resolution Date Notes Provider Name and Address Organization Details Recorded Time Disorder of breast 65964867 Active 2015 hx abnormal breast us and mammogram Sharri clayton [facility] 4 12:00:54 Endometri osis (clinical ) 507063867 Active 2023 Sharri clayton [facility] 4 12:01:37 History of abnormal cervical Papanicol aou smear 219945013 Active 202301/24/19 ascus HPV high risk 04/08/2015 ascus HPV high risk Sharri clayton [facility] 4 12:02:26 Herpesvir us infection 78677650 Active 2023 Sharri clayton [facility] 4 12:02:44 Problem Notes None recorded. Procedures Surgical History Date Name Laterality Status Provider Name and Address Organization Details Recorded Time 04/23/20 24 Laparoscopy completed Sharri Montanez [facility] 06/19/2024 11:59:00 11/15/19 23 Date of Last Pap Smear completed Kayla Figueroa [facility] 03/19/2024 16:55:55 05/19/20 20 IUD Removal completed Merna Alejo, [facility]- [address], [place], [address], [facility] 05/19/2020 14:44:50 02/26/20 19 Colposcopy completed Sharri Montanez [facility] 06/19/2024 19:27:17 02/26/20 19 Colposcopy completed Sharri Montanez [facility] 06/19/2024 19:31:47 09/18/19 18 extraction of wisdom tooth completed Sharri Montanez [facility] 06/19/2024 19:31:57 Imaging Results Imaging Date Name Status LastModified by Organiz ation Details LastModified Time 04/11/2024 imaging/diag nostic result completed [facility] [address] [address], [place], [address], 04/15/2024 15:07:02 Procedure Notes None recorded. Medical Equipment None Reported. Allergies Allergen ID Allergen Name Allergen Category Reaction Reaction Severity Criticality Documentation Date Start Date Code Code System Note Provider Name and Address Organization Details Recorded Time 930 sulfur dioxide medicatio n Not available Not available Not available 02/25/2020 [id number] RxNorm Meaghan clayton, [facility] 0 14:26:03 Medications Name Sig Start Date Stop Date Status Note LastModified by Organization Details LastModified Time Mirena 21 mcg/24 hr (up to 8 years) 52 mg intrauter ine device Take by intraute rine route. 05/19 completed Not Available Not Available Not Available acetamino phen 325 mg tablet 06/19 completed Not Available Not Available Not Available tizanidin e 2 mg tablet TAKE 1 TABLET BY MOUTH EVERY 8 HOURS NEEDED FOR MUSCLE SPASMS active Not Available Not Available No t Available azithromy whitney 250 mg tablet 03/19 completed Not Available Not Available Not Available ibuprofen 800 mg tablet TAKE 1 TABLET BY MOUTH EVERY 8 HOURS FOR 7 DAYS 06/19 completed Not Available Not Available Not Available prednison e 20 mg tablet TAKE 2 TABLETS BY MOUTH DAILY FOR 5 DAYS. START TOMORROW MORNING WITH BREAKFAS T 03/19 completed Not Available Not Available Not Available valacyclo vir 500 mg tablet active Not Available Not Available No t Available meloxicam 7.5 mg tablet TAKE 1 TABLET BY MOUTH DAILY active Not Available Not Available No t Available propranol ol 10 mg tablet TAKE 1-2 TABLETS BY MOUTH EVERY 12 HOURS. TAKE 30-60 MINUTES PRIOR TO ANXIETY PROVOKIN G SITUATIO N active Not Available Not Available No t Available amoxicill in 875 mg tablet TAKE 1 TABLET BY MOUTH TWICE DAILY 03/19 completed Not Available Not Available Not Available benzonata te 100 mg capsule TAKE 1 TO 2 CAPSULES BY MOUTH EVERY 8 HOURS FOR 5 DAYS NEEDED FOR COUGH 03/19 completed Not Available Not Available Not Available azelastin e 137 mcg (0.1 %) nasal spray SPRAY 2 PUFFS IN EACH NOSTRIL TWICE DAILY 03/19 completed Not Available Not Available Not Available letrozole 2.5 mg tablet take 2 tablets days 3 through 7 of cycle 2023 active Not Available Not Available Not Avai lable amoxicill in 875 mg-potass ium clavulana te 125 mg tablet TAKE 1 TABLET BY MOUTH EVERY 12 HOURS 03/19 completed Not Available Not Available Not Available oxycodone 5 mg tablet TAKE 1 TABLET BY MOUTH EVERY 4 HOURS NEEDED FOR PAIN 06/19 completed Not Available Not Available Not Available NuvaRing 0.12 mg-0.015 mg/24 hr vaginal INSERT ONE RING VAGINALL Y ONCE A MONTH. LEAVE IN PLACE FOR 3 WEEKS 04/08 completed Prescrib ed Elsewher e: No Locat ion: Juan lozada [facility] odify By: deion donovan DateTime : 03/30/20 15 11:23:07 AM Not Available Not Available Not Available Ortho-Cyc latha (28) 0.25 mg-35 mcg tablet take 1 tablet by oral route every day 03/18 completed Prescrib ed Elsewher e: No Locat ion: Juan lozada [facility] odify By: diamond Almodovar ntnagi DateTime : 03/18/20 14 02:30:00 PM Not Available Not Available Not Available tizanidin e 2 mg capsule 03/19 completed Not Available Not Available Not Available meloxicam 03/19 completed Not Available Not Available Not Available 03/19 completed Not Available Not Available Not Available Vitals Date Recorded Body height Body mass index (BMI) Body weight Systolic blood pressure Diastolic blood pressure Provider Name and Address Organization Details Last Updated DateTime 12/22/2020 172.72 cm 30.9 kg/m2 70441.25 g 131 mm[Hg] 78 mm[Hg] Nicole Gresham [facility] 1 11:33:07 Date Recorded Body height Body mass index (BMI) Body weight Systolic blood pressure Diastolic blood pressure Provider Name and Address Organization Details Last Updated DateTime 05/19/2020 172.72 cm 28.4 kg/m2 69227.77 g 132 mm[Hg] 81 mm[Hg] Meaghan De Jesus [facility] 0 13:44:21 Date Recorded Body weight Body mass index (BMI) Body height Systolic blood pressure Diastolic blood pressure Provider Name and Address Organization Details Last Updated DateTime 03/19/2024 787497.1 7 g 36.5 kg/m2 172.72 cm 117 mm[Hg] 74 mm[Hg] Kayla Figueroa [facility] 4 16:55:41 Date Recorded Body height Body mass index (BMI) Body weight Systolic blood pressure Diastolic blood pressure Provider Name and Address Organization Details Last Updated DateTime 06/19/2024 172.72 cm 35.6 kg/m2 145523.6 1 g 116 mm[Hg] 80 mm[Hg] Sharri Montanez [facility] 4 11:58:42 Date Recorded Body height Body mass index (BMI) Body weight Systolic blood pressure Diastolic blood pressure Provider Name and Address Organization Details Last Updated DateTime 10/11/2024 172.72 cm 36 kg/m2 820000.3 9 g 116 mm[Hg] 78 mm[Hg] Sharri Montanez [facility] 10:26:42 Social History Question Answer Notes LastModified by Organizat ion Details LastModified Time Tobacco Smoking Status Never Smoker Meaghan De Jesus [facility] 02/25/2020 14:27:47 What Is Your Level Of Alcohol Consumption? None Information not available 03/19/2024 Are You Blind Or Do You Have Difficulty Seeing? No Information not available 03/19/2024 What Is Your Level Of Caffeine Consumption? Moderate Information not available 03/19/2024 How Much Tobacco Do You Chew? None Information not available 03/19/2024 In The 14 Days Before Symptom Onset, Have You Had Close Contact With A Laboratory-confir med COVID-19 While That Case Was Ill? No Information not available 03/19/2024 In The 14 Days Before Symptom Onset, Have You Had Close Contact With A Person Who Is Under Investigation For COVID-19 While That Person Was Ill? No Information not available 03/19/2024 Have You Been To An Area Known To Be High Risk For COVID-19? No Information not available 03/19/2024 Are You Deaf Or Do You Have Serious Difficulty Hearing? No Information not available 03/19/2024 What Type Of Diet Are You Following? REGULAR Information not available 03/19/2024 What Is The Highest Grade Or Level Of School You Have Completed Or The Highest Degree You Have Received? 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 Yes Information not available 03/19/2024 Do You Use Protection During Sex? No Information not available 03/19/2024 Do You Use Your Seat Belt Or Car Seat Routinely? Yes Information not available 03/19/2024 Do You Have Smoke And Carbon Monoxide Detectors In Your Home? Yes Information not available 03/19/2024 How Much Tobacco Do You Smoke? No Information not available 03/19/2024 Do You Feel Stressed (tense, Restless, Nervous, Or Anxious, Or Unable To Sleep At Night)? [id number] Information not available 03/19/2024 Do You Use Any Illicit Or Recreational Drugs? No Information not available 03/19/2024 Do You Use Sunscreen Routinely? Yes Information not available 03/19/2024 Have You Used IV Drugs? No Information not available 03/19/2024 Sex: Unknown Functional Status Question Answer Note LastModified by Organizat ion Details LastModified Time Do you have difficulty walking or climbing stairs? No [email or web address] Information not available 06/19/2024 Are you able to walk? YESWOREST Information not available 03/19/2024 Are you able to care for yourself? Yes [email or web address] Information not available 06/19/2024 Do you have difficulty dressing or bathing? No [email or web address] Information not available 06/19/2024 What is your exercise level? Moderate Information not available 03/19/2024 Mental Status None recorded. Family History Relationship Description Onset Age of this Age Resolved Age Notes LastModified by Organization Details LastModified Time Father Hypertensive disorder [email or web address] Not available 2019 14:26:26 Paternal Grandfather Diabetes mellitus [email or web address] Not available 2019 14:26:59 Paternal Grandfather Carcinoma in situ of lung [email or web address] Not available 10:10:18 Paternal Grandfather Carcinoma in situ of urinary bladder [email or web address] Not available 2024 10:10:18 Maternal Aunt Diabetes mellitus [email or web address] Not available 2019 14:26:59 Maternal Aunt Carcinoma in situ of breast [email or web address] Not available 2024 10:10:18 Maternal Grandfather Diabetes mellitus [email or web address] Not available 2019 14:26:59 Paternal Grandmother Diabetes mellitus [email or web address] Not available 2019 14:26:59 Mother Diabetes mellitus [email or web address] Not available 2019 14:26:59 Mother Carcinoma in situ of breast patien t had 6 matern al great aunts with breast cancer [email or web address] Not available 10/11/2024 10:10:18 Maternal Grandmother Disorder of thyroid gland [email or web address] Not available 2019 14:27:25 Medical History Condition Response Allergies (Food, seasonal, environmental ) N Other N Breast Cancer N Drug/Latex Allergies/Reactions Y Blood Transfusion N Dermatologic Disorders N Lung Disease N Defects or Inherited Disease N Breast Problem Y Gestational Diabetes N Hematologic disorders N Anesthesia Complications N History of STI Y Deep Vein Thrombosis N Polycystic ovary syndrome N Anxiety Disorder Y Autoimmune disease N Arthritis N Infertility N Polyps N Acid Reflux (GERD) N History of abnormal pap Y Cancer N Stroke N Varicosities N Neurologic/Epilepsy N Endometriosis Y High Cholesterol N Headaches N Fibromyalgia N Kidney Disease N Heart Problems N Kidney or Bladder Problems N Thyroid Problems N GI Problems N Eating Disorder N Anemia N Art (IVF or FET) N Psychiatric Illness N Ovarian Cancer N Diabetes N Pulmonary (TB, Asthma) N Hepatitis/Liver Disease N No Past Medical History N Eczema N Urinary Tract Infection N Abuse/Domestic Violence N Asthma N Trauma/Violence N Depression/ depression Y Heart Disease N Pre-Eclampsia N Hypertension N Osteoporosis N Thrombophilias N Gynecological History Statement/Question Response Date of Last Mammogram Date of LMP 05/31/2024 N Was last menstrual period normal N STIs/STDs Yes Date of Last Colonoscopy Desired Control Method Seeking Pre gnancy Abnormal Pap Yes On BCP's at Conception? N HPV Vaccine Y Colposcopy 02/25/2019 Duration of Flow (days) 3 Current Control Method Seeking Pre gnancy Are cycles usually normal Y Frequency of Cycle (Q days) 28 Sexually Active? Y Menses Monthly Y Date of DEXA bone scan Age of first menstrual cycle 11 Date of Last Pap Smear 11/15/2022 Sexual Problems? N LMP Definite N Obstetrics History GPAL:G 0 P 0 0 0 0 Type Value Living 0 Total 0 Past Encounters Encounter ID Performer Location Encounter Start Date Encounter Closed Date Diagnosis/Indication Diagnosis SNOMED-CT Code Diagnosis ICD10 Code Diagnosis Note [id number] Merna Alejo [facility] [address] [address] 02/25/2020 14:19:10 02/25/2020 15:57:27 Gynecologic examination [id number] Z01.419 Take Calcium with Vitamin D 1200mg daily if not receiving in daily diet. It is strongly advised to have an annual flu shot and up can obtain at most pharmacies . If you have not had a TDap shot in the last 10 years you should obtain one as well. Discussed with patient & provided with informatio n regarding Gardisil vaccine to prevent the 4 strains for HPV that cause cervical cancer if under age 26. Encourage safe sexual practices, to use condoms and limit partners if not already in a monogamous relationsh ip. Do monthly self breast exams. Have mammogram yearly or every other year depending on family history. BRCA testing is now available for patients with strong genetic history of female cancer. If interested contact the office. Engage in daily exercise of low impact aerobic exercise 45-60 minutes 4-5 times weekly. Avoid tobacco and illicit drugs as well as using moderation with alcohol intake less than 1-2 8 oz beverages daily. This lifestyle behavior pattern will lead to less health conditions and longer life span. If BMI greater than 25 weight watchers or dietary consult advised. Patient received above instructio ns, and questions have been answered. If you have any questions please call or respond to this email. Patient was made aware of the patient portal and may obtain a paper copy of today's plan if desired. Pap udpated Last pap ASCUS +HR HPV with Colpo wnl IUD Mirena Placed 05/2015 [id number] Merna Alejo [place] [address],[place] [address] 05/19/2020 13:28:10 05/19/2020 15:22:38 Removal of intrauterine device [id number] Z30.432 She states the symptoms are of new onset. Patient is here due to the approachin g due date or the nature of her IUD and wishes to have it removed. . She expressed understand ing. It was explained that she may have bleeding or spotting after the removal of the device today as well. If cannot see the strings of this device we will need to get an US image to make that the device is still in place and not in an unobtainab le position. She expressed understand ing of all the above instructio ns. [id number] Merna Alejo [place] [address],[place] [address] 12/22/2020 11:20:05 12/22/2020 12:12:06 Gynecologic examination [id number] Z01.419 Take Calcium with Vitamin D 1200mg daily if not receiving in daily diet. It is strongly advised to have an annual flu shot and up can obtain at most pharmacies . If you have not had a TDap shot in the last 10 years you should obtain one as well. Discussed with patient & provided with informatio n regarding Gardisil vaccine to prevent the 4 strains for HPV that cause cervical cancer if under age 26. Encourage safe sexual practices, to use condoms and limit partners if not already in a monogamous relationsh ip. Do monthly self breast exams. Have mammogram yearly or every other year depending on family history. BRCA testing is now available for patients with strong genetic history of female cancer. If interested contact the office. Engage in daily exercise of low impact aerobic exercise 45-60 minutes 4-5 times weekly. Avoid tobacco and illicit drugs as well as using moderation with alcohol intake less than 1-2 8 oz beverages daily. This lifestyle behavior pattern will lead to less health conditions and longer life span. If BMI greater than 25 weight watchers or dietary consult advised. Patient received above instructio ns, and questions have been answered. If you have any questions please call or respond to this email. Patient was made aware of the patient portal and may obtain a paper copy of today's plan if desired. Pap updated Last [id number] wnl Previous pap 2018 was ASCUS +HR HPV with Colpo wnl No BC No issues Started PNV as looking to achieve [id number] LYNETTE Monsivais [place] [address] [address] 03/19/2024 16:51:25 03/20/2024 11:10:02 Gynecologic examination [id number] Z01.419 WWEpap updateddec lined STI screenrout ine labs/PCP It is strongly advised to have an annual flu shot and up can obtain at most pharmacies . If you have not had a TDap shot in the last 10 years you should obtain one as well.Discu ssed with patient & provided with informatio n regarding HPV vaccine if applicable . Encourage safe sexual practices, to use condoms and limit partners if not already in a monogamous relationsh ip.Do monthly self breast exams. BRCA testing is now available for patients with strong genetic history of female cancer. If interested contact the office.Eng age in regular exercise. Avoid tobacco and illicit drugs. This lifestyle behavior pattern will lead to less health conditions and longer life span. If BMI greater than 25 dietary consult advised. Patient received above instructio ns, and questions have been answered. If you have any questions please call or respond to this email. Patient was made aware of the patient portal and may obtain a paper copy of today's plan if desired. Breast lump [id number] N63 .0 bilateral diagnostic mammogram with u/s [facility] [id number] [facility] [address],[place] [address] 06/19/2024 11:31:24 06/19/2024 14:19:26 Trying to conceive [id number] Z31.9 discussed COST, will plan letrozole 5 mg days 3-7 with next cycle if neededplan progestero ne levelhando uts given questions answeredma y have referral to [facility] fertility at any time if desires IVF Endometrio sis of pelvis [id number] N80.9 [id number] Karla Sinclair CNM [place] [address],[place] [address] 10/11/2024 10:07:14 10/11/2024 11:18:53 Irregular periods 14178261 N92.6 Trying to conceive [id number] Z31.9 f/u pending lab results Health Concerns Section Related Observation LastModified by Organization Detai ls LastModified Time None Recorded Concern Status LastModified by Organization Details LastModified Time None Recorded Advance Directives Directive None Recorded Payers Encounter Date Sequence Insurance Name Policy Number Policy Santos Covered Member ID Santos Member ID Guarantor Name 05/19/2020 1 [place] [id number] Rebecca Dia [id number] Rebecca Revisky 12/22/2020 1 [facility] Rebecca L Revisky [id number] Rebecca Revisky 03/19/2024 1 [employer] - CHOICE (POS II) [id number] Rebecca L Revisky [id number] Rebecca Revisky 06/19/2024 1 [employer] - CHOICE (POS II) [id number] Rebecca L Revisky [id number] Rebecca Revisky 10/11/2024 1 [employer] - CHOICE (POS II) [id number] Rebecca Zazueta [id number] Rebecca Zazueta Notes Date Note Type Note Provider Name and Address Organization Details Recorded Time 05/19/2020 text/html [facility] [address], [place], [address], [facility] 05/19/2020 14:46:04 12/22/2020 text/html Annual GYNReport ed bypatient.History:n o gynecologic complaints Menstrual cycle:Normal menses Urinary symptoms:No hematuria; No incontinence Vulva:No genital lesion Vagina:Normal vaginal discharge Breast:No breast pain; No breast lump; No nipple discharge Current Contraception:Monog amous relationship; control not practiced Sexual complaints:No sexual complaints; No pain during intercourse; Normal libido Menopausal Symptoms:No menopausal symptoms; Normal vaginal lubrication Psychological symptoms:No depression; No anxiety; No PMDD Preventive measures:Encourage self breast examination; Encourage regular exercise; Encourage no tobacco use; Encourage regular mammograms starting age 40; History of abnormal pap smear/cervical dysplasia IVAN Arreaga [address], [place], [address], [facility] 12/22/2020 12:07:25 03/19/2024 text/html Annual GYNReport ed bypatient.Menstrual cycle:Normal menses Urinary symptoms:No hematuria; No incontinence Vulva:No genital lesion Vagina:Normal vaginal discharge Breast:No breast pain; No breast lump; No nipple discharge Current Contraception: control not practiced Sexual complaints:No sexual complaints; No pain during intercourse; Normal libido Menopausal Symptoms:No menopausal symptoms; Normal vaginal lubrication Psychological symptoms:No depression; No anxiety; No PMDD Preventive measures:Encourage self breast examination; Encourage regular exercise; Encourage no tobacco use; Encourage regular mammograms starting age 39Notes:28yo [id number] pap 2022 - normal per pth/o abnormal pap last 2018TTC x 4 yrs, following with RJ, has done 3 IUI's previously. Has diagnostic lap scheduled next month with endo specialist at [facility] LYNETTE Monsivais [address], [place], [address], [facility] 03/20/2024 09:18:33 06/19/2024 text/html TTC x 4 years brennan s done 3 IUI with [facility] 2 HSG's, last hsg done with endometriosis excision in april at [facility], patent x 2husbands semen analysis goodcycles monthly+LH and BBTinterested in medicated cycles if no after this monthwas on clomid and letrozole in the past. letrozole had less side effects for her Karla Sinclair CNM [address], [place], [address], [facility] 06/19/2024 12:24:15 10/11/2024 text/html f/u fertility, T TC, reviewed hx, has been awhile since labs drawn 3 years since s semen analyis.cycles monthly,progesteron e levels good on letrozole Karla Sinclair CNM [address], [place], [address], [facility] 10/11/2024 11:00:27 OBGyn Episode No OBEpisode recorded.
--- OUTSIDE RECORDS SUMMARY | 2025-01-13 10:34 | XMS_ITS | Encounter Summary ---
Author Organization 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 [address] [place] [address] Nicole Ba MD [address] [place] [address] Concerns Social History Tobacco Use Types Packs/Day Years Used Date Smoking Tobacco: Never Assessed Comments No Sex and Gender Information Value Date Recorded Sex Assigned at Not on file Legal Sex Female 3:29 PM CDT Gender Identity Not on file Sexual Orientation Not on file documented as of this encounter Miscellaneous Notes * Telephone Encounter - Ann Marie Reyes MD - 01/03/2024 8:18 AM CDT agree * Telephone Encounter - Marisabel Garcia RN - 01/03/2024 8:09 AM CDT RN called pt to make aware can do Mobic 7.5mg BID but that is max dose for this medication. Pt verbalizes understanding * Telephone Encounter - Ann Marie Reyes MD - 01/02/2024 4:59 PM CDT Agree, mobic 7.5 bid is the max dose. Agree with other recs. * Telephone Encounter - Marisabel Garcia RN - 01/02/2024 2:05 PM CDT RN returned call to pt. Per pt she saw her family physician today for pain. Pt thought she had UTI or Kidney stone. After checking urinalysis the provider thinks pt had a cyst rupture. Pt said she believes she ovulated last week and after that then developed right side cramping and back pain. Back pain and cramping better today. Pt taking Mobic 7.5mg. Pt family provider told her she could double this dose. Pt wanting to check with Dr. Ba first Pt made aware Dr. Ba out of office this week, can run it by her covering partner. Pt aware not to take any other nsaids with this drug. Tylenol and heat encouraged RN can see from JITENDRA pt needs US and visit. Pt starting new job so scheduling may be issue. Pt scheduled for 01/16 for US and visit with Dr. Ba. Pt accepts appt. ER precautions reviewed * Telephone Encounter - Cassie Dial - 01/02/2024 1:52 PM CDT Pt called stating she seen her PC and he thinks she had a cyst rupture on her ovaries and she was told to notify the office. documented in this encounter Plan of Treatment Not on file documented as of this encounter Visit Diagnoses Not on filedocumented in this encounter Care Teams Information Assurance Officer Relationship Specialty Start Date End Date Mark Hoskins MD [address] [place] [address] PCP - General Family Medicine 11/22/23 documented as of this encounter
== END 2025-01-13 09:38 | disposition home or self-care (01) ==
PROVIDERS: PCP Family Medicine; Visit Provider Surgery
DX: N63.15 Unspecified lump in the right breast, overlapping quadrants (principal); Z91.89 Other specified personal risk factors, not elsewhere classified; Z12.39 Encounter for other screening for malignant neoplasm of breast; N63.22 Unspecified lump in the left breast, upper inner quadrant
CPT/HCPCS: 77062; 77066; G0279

== ENCOUNTER 2025-08-29 07:47 | Outpatient (CLI) | payer OTHER, SELFPAY ==
--- NOTE | ~2025-08-29 | MR_ITS ---
MR breast BI wo/w con INDICATION:30 year old female with extremity dense fibroglandular breast tissue pattern and elevated lifetime risk of breast cancer estimated at over 20% presents for high-risk screening bilateral breast MRI. Most recent annual mammography examination completed on 01/13/2025 showed no mammographic evidence of malignancy in either breast. TECHNIQUE: MRI of the breasts perform using standard protocol pre-and post IV contrast with the following sequences: Axial T2 STIR, axial T1, axial vibrant T1 with fat suppression precontrast and multiphasic postcontrast. 20 cc MultiHance administered intravenously. COMPARISON: Mammogram and ultrasound dated 01/05/2025. FINDINGS: There is Markedly dense fibroglandular tissue that demonstrates Moderate enhancement and is Symmetric. Right breast: There are no abnormalities on the precontrast sequences. Multiple fluid intensity masses compatible with cysts scattered throughout the breast parenchyma. There is prominent nodular background parenchymal enhancement. No enhancing lesions following contrast administration. No areas of enhancement meeting threshold criteria on CAD analysis. Nipple areolar complex is normal in appearance. No evidence of signal abnormalities in the axillary or internal mammary node distributions. LEFT BREAST: No signal abnormalities on precontrast sequences. Multiple fluid intensity masses compatible with cysts scattered throughout the breast parenchyma. There is prominent nodular background parenchymal enhancement. No enhancing lesions following contrast administration. No areas of enhancement meeting threshold criteria on CAD analysis. The nipple areolar complex is normal in appearance. No evidence of signal abnormalities in the axillary or internal mammary node distributions.] IMPRESSION: 1: Right breast: Negative. 2. Left breast: Negative. No evidence of malignancy. 3. The chest wall and axillary portion of the examination unremarkable. RECOMMENDATION: Follow-up MRI may be useful for supplementing mammographic evaluation as clinically indicated. BI-RADS Category 2: Benign findings. Reviewed, dictated and finalized at location [facility] IMPRESSION: 1: Right breast: Negative. 2. Left breast: Negative. No evidence of malignancy. 3. The chest wall and axillary portion of the examination unremarkable. RECOMMENDATION: Follow-up MRI may be useful for supplementing mammographic evaluation as clinic ally indicated. BI-RADS Category 2: Benign findings.
== END 2025-08-29 07:48 | disposition home or self-care (01) ==
PROVIDERS: PCP Family Medicine; Visit Provider Surgery
DX: Z12.31 Encounter for screening mammogram for malignant neoplasm of breast (principal); Z80.3 Family history of malignant neoplasm of breast; Z91.89 Other specified personal risk factors, not elsewhere classified; R92.343 Mammographic extreme density, bilateral breasts
CPT/HCPCS: 77049; A9577; C8908